=== PATIENT | female | born 1955 | race Caucasian/White ===

== ENCOUNTER 2017-02-27 11:28 | Outpatient (CLI) | payer OTHER ==
[~2017-02-27] VITALS: Ht 163.8 cm; Wt 73.2 kg
--- NOTE | ~2017-02-27 | HEMODYNAMI ---
PATIENT:TONYA LYON MEDICAL RECORD: [id number] : 55 LOCATION:[facility] ADMISSION DATE: 02/27/17 Generatedon:02/27/201714:04 Patient name: TONYA LYON Patient #: [id number] : 1955 Date of study: 02/27/2017 Page: Of Hemodynamic Procedure Report Patient Data Patient Demographics Procedure consent was obtained First Name: TONYA Gender: Female Last Name: CAMRON : 1955 Patient #: [id number] Age: 61 year(s) Race: SSN: [id number] Additional ID: [id number] Contact details Address: [address] [place] [address] [place] [facility] Zip code: [address] Admission Admission Data Admission Date: 02/27/2017 Admission Time: 11:28 Arrival Date: 02/27/2017 Arrival Time: 13:30 Admit Source: Other Insurance Payor: Private health insurance Height (in.): 64 BSA: 1.81 (m2) Height (cm.): 162.56 BMI: 28.49 (kg/m2) Weight (lbs.): 166 Weight (kg.): 75.3 Lab Results Lab Result Date: 02/27/2017 Lab Result Time: 0:00 Biochemistry Name Units Result Min Max BUN mg/dl 11 --(-*--)-- 7 18 Creatinine mg/dl 0.7 --(*---)-- 0.6 1.3 CBC Name Units Result Min Max Hemoglobin g/dl 14.9 --(-*--)-- 13.5 17.5 Procedure Procedure Types Cath Procedure Diagnostic Procedure [facility] w/Coronaries PCI Procedure Coronary Stent Initial Miscellaneous Procedures Moderate Sedation up to 45 minutes Procedure Description Procedure Date Procedure Date: 02/27/2017 Procedure Start Time: 13:40 Procedure End Time: 14:00 Procedure Staff Name Function Sanket Santana MD Performing Physician Allison Scott RT Scrub Krystal Hahn RN Nurse Shasta Campos RT Monitor Procedure Data Cath Procedure Fluoroscopy Diagnostic fluoroscopy Total fluoroscopy Time: 4 time: 4 min min Diagnostic fluoroscopy Total fluoroscopy dose: 455 dose: 455 mGy mGy Contrast Material Contrast Material Type Amount (ml) Isovue 370 78 Entry Location Entry Primary Successful Side Size Upsize Upsize Entry Closure Lentz ccessful Closure Location (Fr) 1 (Fr) 2 (Fr) Remarks Device Remarks Radial Right 6 Fr 6 Fr Mechanical artery Short Short Compression Estimated blood loss: 5 ml Diagnostic catheters Device Type Used For End Catheter Placement Terumo Optitorque 5Fr Multi-vessel Panna Maria 4.5 catheter Angiography Procedure Complications No complications Procedure Medications Medication Administration Route Dosage Oxygen NC 2 l/min Lidocaine 2% added to field 20 Heparin Flush Bag added to field 2 bags (1000units/500ml NS) 0.9% NaCl I.V. 100 ml/hr Versed I.V. 1 mg Fentanyl I.V. 50 mcg Versed I.V. 1 mg Fentanyl I.V. 50 mcg Radial Cocktail I.A. 1 syringe (Verapomil 2mg/Nitro 400mcg/Heparin 1500units) Heparin Bolus I.V. 7500 units Versed I.V. 0.5 mg Fentanyl I.V. 25 mcg Brilinta P.O. 180 mg Hemodynamics Rest BSA: 1.81 (m2) HGB: 14.9 (g/dl) O2 Consumption: Estimated: 170.13 (ml/min) O2 Co nsumption indexed: Estimated:93.99 (ml/min/m) Heart Rate: 69 (bpm) Pressure Samples Time Site Value (mmHg) Purpose Heart Use Rate(bpm) 13:44 LV 109/19,23 Snapshot 56 Gradients Valve Time Site Site Mean SEP/DFP Peak To Heart Use 1 2 (mmHg) (sec/min) Peak Rate (mmHg) (bpm) Aortic 13:44 LV AO 78 Snapshots Pre Cath Intra NCS Post Cath Vital Signs Time Heart Resp SPO2 etCO2 SA2pjon NIBP (mmHg) Rhythm Pain Sedation Rate (ipm) (%) (mmHg) (mmHg) Status Level (bpm) 13:19:26 68 17 99 0 0 136/80(110) NSR 0 (11) 10(A) , No pain 13:23:40 75 18 97 0 0 117/69(92) NSR 0 (11) 10(A) , No pain 13:27:52 70 17 94 0 0 119/69(89) NSR 0 (11) 10(A) , No pain 13:32:02 73 17 94 0 0 117/68(90) NSR 0 (11) 10(A) , No pain 13:36:09 71 15 95 0 0 98/68(82) NSR 0 (11) 9(A) , No pain 13:40:17 71 15 94 0 0 100/61(83) NSR 0 (11) 9(A) , No pain 13:44:33 95 17 98 0 0 82/38(75) NSR 0 (11) 9(A) , No pain 13:48:37 73 17 94 0 0 92/55(73) NSR 0 (11) 9(A) , No pain 13:52:41 74 17 95 0 0 96/67(87) NSR 0 (11) 9(A) , No pain 13:56:49 80 18 96 0 0 97/62(89) NSR 0 (11) 10(A) , No pain 14:00:50 79 9 95 0 0 113/76(95) NSR 0 (11) 10(A) , No pain Medications Time Medication Route Dose Verified Delivered Reason Note s Effectiveness by by 13:19:42 Oxygen NC 2 l/min Sanket Buffie used for Erasto Hahn RN procedure 13:19:50 Lidocaine 2% added 20ml Sanket Sanket for local to vial Erasto Santana MD anesthetic field 13:19:56 Heparin Flush added 2 bags Sanket Sanket used for Bag to Erasto Santana MD procedure (1000units/500ml field NS) 13:20:05 0.9% NaCl I.V. 100 Sanket Buffie Per physician ml/hr Erasto Hahn RN 13:27:12 Versed I.V. 1 mg Sanket Buffie for sedation Erasto Hahn RN 13:27:18 Fentanyl I.V. 50 mcg Sanket Buffie for sedation Erasto Hahn RN 13:34:20 Versed I.V. 1 mg Sanket Sanket for sedation Erasto Santana MD 13:34:24 Fentanyl I.V. 50 mcg Sanket Sanket for sedation Erasto Santana MD 13:43:32 Radial Cocktail I.A. 1 Sanket Sanket for (Verapomil syringe Erasto Santana MD vasodilation 2mg/Nitro 400mcg/Heparin 1500units) 13:44:27 Versed I.V. 0.5 mg Sanket Buffie for sedation Erasto Hahn RN 13:44:32 Fentanyl I.V. 25 mcg Sanket Buffie for sedation Erasto Hahn RN 13:51:09 Heparin Bolus I.V. 7,500 Sanket Buffie for veri fied units Erasto Hahn RN anticoagulation with dr santana 13:59:43 Brilinta P.O. 180 mg Sanket Buffie for Erasto Hahn RN antiplatelet therapy Procedure Log Time Note 12:43:35 Diagnostic Cath status Elective 12:43:36 Time tracking: Regular hours 12:43:41 Plan of Care:Hemodynamics will remain stable., Cardiac rhythm will remain stable., Comfort level will be maintained., Respiratory function will remain adequate., Patient/ family verbilizes understanding of procedure., Procedure tolerated without complication., Recovers from procedure without complications.. 12:45:41 Allison Scott RT(R) sent for patient. Start room use. 13:03:21 Informed consent obtained and on chart 13:04:01 Admit Source: Other 13:04:08 Arrival Date: 02/27/2017 1:30:00 PM 13:04:15 Insurance Payor : Private health insurance 13:04:27 Patient Height : 64 cm 13:04:46 Patient Weight : 166 kg 13:08:48 Lab Result : Hemoglobin 14.9 g/dl 13:08:48 Lab Result : BUN 11 mg/dl 13:08:48 Lab Result : Creatinine 0.7 mg/dl 13:10:34 Patient received from Pre/Post Procedure Room to CCL 1 Alert and oriented. Tansferred to table in Supine position. 13:10:36 Correct patient and procedure confirmed by team. 13:10:38 ECG and BP/O2 sat monitors applied to patient. 13:13:11 Warm blankets applied, and charlotte hugger turned on for patient comfort. 13:18:21 Baseline sample Acquired. 13:18:21 Vital chart was started 13:18:24 Rhythm: sinus rhythm 13:18:27 Full Disclosure recording started 13:18:46 H&P Date Dictated: 02/09/2017 Within 30 days and on chart., H&P Addendum completed by physician on day of procedure. (MUST COMPLETE FOR ALL OUTPATIENTS). 13:18:47 Pre-procedure instructions explained to patient. 13:18:48 Pre-op teaching completed and patient verbalized understanding. 13:18:50 Family in waiting room. 13:18:51 Patient NPO since Midnight. 13:18:57 Is the patient allergic to Iodine/contrast media? No. 13:18:59 Was the patient premedicated? No 13:19:01 Is patient on blood thinner?No 13:19:03 Patient diabetic? No. 13:19:06 Previous problem with sedation/anesthesia? No ? 13:19:08 Snore? Yes 13:19:09 Sleep apnea? No 13:19:10 Deviated septum? No 13:19:11 Opens mouth fully? Yes 13:19:11 Sticks out tongue? Yes 13:19:13 Airway obstruction? No ? 13:19:17 Dentures? No ? 13:19:21 Pre procedure: right dorsailis pedis pulse 1+ Palpable, but thready & weak; easily obliterated 13:19:23 Patient pain scale 0/10 ?. 13:19:29 IV patent on arrival in left forearm with 0.9% NaCl at [facility]. 13:19:34 Lab results completed and on chart. 13:19:38 Right Radial & Right Groin area was prepped with chlora-prep and draped in sterile fashion 13:19:39 Alarms reviewed by R. N. 13:19:39 Sharps counted by scrub and verified by R.N. 13:19:40 Physician arrived 13:19:41 --------ALL STOP TIME OUT------ 13:19:41 Final Timeout: patient, procedure, and site verified with staff and physician. All members of the team are in agreement. 13:19:42 Oxygen 2 l/min NC was administered by Krystal Hahn RN; used for procedure; 13:19:43 Right Radial & Right Groin site verified by team. 13:19:46 Physical assessment completed. ASA score P 2 - A patient with mild systemic disease as per Sanket Santana MD. 13:19:50 Lidocaine 2% 20ml vial added to field was administered by Sanket Santana MD; for local anesthetic; 13:19:50 Sedation plan: IV Moderate Sedation Versed, Fentanyl 13:19:55 Use device set Radial Dx 13:19:56 Heparin Flush Bag (1000units/500ml NS) 2 bags added to field was administered by Sanket Santana MD; used for procedure; 13:19:57 Acist Syringe opened to sterile field. 13:19:57 Medline Cath Pack opened to sterile field. 13:19:58 Bag Decanter opened to sterile field. 13:19:58 Terumo 6Fr Slender Glidesheath opened to sterile field. 13:19:58 St Rito 260cm J .035 wire opened to sterile field. 13:19:59 Acist Hand Control opened to sterile field. 13:19:59 Acist Manifold opened to sterile field. 13:20:00 Tegaderm 4 x 4 opened to sterile field. 13:20:02 MBrace Wrist Support opened to sterile field. 13:20:05 0.9% NaCl 100 ml/hr I.V. was administered by Krystal Hahn RN; Per physician; 13:27:12 Versed 1 mg I.V. was administered by Krystal Hahn RN; for sedation; 13:27:18 Fentanyl 50 mcg I.V. was administered by Krystal Hahn RN; for sedation; 13:30:23 Zero performed for pressure channel P1 13:34:20 Versed 1 mg I.V. was administered by Sanket Santana MD; for sedation; 13:34:24 Fentanyl 50 mcg I.V. was administered by Sanket Santana MD; for sedation; 13:40:36 Procedure started. 13:40:58 Local anesthetic to right radial artery with Lidocaine 2% by Sanket Santana MD.INITIAL ACCESS ONLY 13:41:08 A 6 Fr Short sheath was inserted into the Right Radial artery 13:43:00 A Duable Chinese Optitorque 5Fr Panna Maria 4.5 catheter was advanced over the wire and used for Multi-vessel Angiography. 13:43:32 Radial Cocktail (Verapomil 2mg/Nitro 400mcg/Heparin 1500units) 1 syringe I.A. was administered by Sanket Santana MD; for vasodilation; 13:44:23 LV hemodynamics recorded. 13:44:24 LV gram done using HARMAN 13:44:27 Versed 0.5 mg I.V. was administered by Krystal Hahn RN; for sedation; :44:27 Injector settings: Ml/sec: 5, Volume: 15, 13:44:32 Fentanyl 25 mcg I.V. was administered by Krystal Hahn RN; for sedation; 13:44:39 EF : 60 % 13:45:11 LCA angiography performed. 13:45:14 Injector settings: Ml/sec: 3, Volume: 6, 13:47:09 RCA angiography performed. 13:47:12 Injector settings: Ml/sec: 3, Volume: 6+, 13:47:32 Catheter removed. 13:47:51 Soricimed BMW [place] 2 J-tip 300cm 0.014 guide wir opened to sterile field. 13:47:52 Enfold[employer] Inc.ixCompak Inflation Kit opened to sterile field. 13:47:53 Cordis 6FR XBLAD 3.5 guide catheter opened to sterile field. 13:48:01 Sheath upsized to a 6 Fr Short. 13:48:15 6 Fr xblad 3.5 guide catheter was inserted over the wire 13:48:20 bmw wire advanced. 13:48:28 High Pressure Extension Tubing (Erasto) opened to sterile field. 13:51:09 Heparin Bolus 7,500 units I.V. was administered by Krystal Hahn RN; for anticoagulation; verified with dr santana 13:52:58 Wire advanced across lesion. 13:55:25 Inflation Number: 1 A Medtronic Integrity 2.75 X 14 stent was prepped and advanced across the Mid CX. The stent was deployed at 10 CLAYTON for 0:10 (min:sec). 13:56:20 Stent catheter was removed intact over wire. 13:56:21 Wire removed. 13:56:22 Guide catheter removed. 13:56:46 Terumo TR Band Standard opened to sterile field. 13:57:05 Sheath removed intact; hemostasis achieved with Mechanical Compression to the Right Radial artery. 13:57:08 Procedure ended.(Physican Out) 13:58:07 Fluoroscopy time 04.00 minutes. 13:58:33 Fluoroscopy dose: 455 mGy 13:58:33 Flurop Dose total: 455 13:58:55 Contrast amount:Isovue 370 78ml. 13:59:21 Sharps counted by scrub and verified by R.N. 13:59:26 TR band inflated with 10cc of air. 13:59:28 Insertion/operative site no bleeding no hematoma. 13:59:43 Brilinta 180 mg P.O. was administered by Krystal Hahn RN; for antiplatelet therapy; 13:59:52 Post right radial artery:stable 13:59:54 Post Procedure Pulses reassessed and unchanged 13:59:57 Post procedure rhythm: unchanged. 14:00:00 Estimated blood loss: 5 ml 14:00:03 Post procedure instruction explained to patient.Patient verbalizes understanding. 14:00:04 Patient needs reinforcement of post procedure teaching. 14:00:28 Procedure type changed to Cath procedure, Diagnostic procedure, LHC, LHC w/Coronaries, PCI procedure, Coronary Stent Initial, Miscellaneous Procedures, Moderate Sedation up to 45 minutes 14:00:31 Procedure and supply charges have been captured, reviewed, submitted and are correct. 14:00:36 Procedure Complication : No complications 14:00:39 Vital chart was stopped 14:00:39 See physician's report for complete and final results. 14:00:42 Report given to Pre/Post Procedure Room. 14:00:45 Patient transfered to Pre/Post Procedure Room with Stretcher. 14:00:47 Procedure ended. 14:00:47 Full Disclosure recording stopped 14:01:02 ACC-PCI Only Patient was given prescriptions, or instructed by Sanket Santana MD to start/continue the following medications upon discharge: Brilinta 14:01:05 End room use (Document Last) Intervention Summary Intervention Notes Time ActionType Lesion and Equipment Action# Pressure Duration Attributes Used 13:55:25 Place stent Mid CX Medtronic 1 10 00:10 Integrity 2.75 X 14 stent Device Usage Item Name Manufacture Quantity Catalog Hospital Part Current Minimal Lot# / Number Charge Number Stock Stock Serial# Code Acist Acist 1 40880 720268 024460 502427 20 Syringe Medical Systems Inc Medline Cardinal 1 [id number] 203484 72711 588149 5 Cath Pack Health Bag Microtek 1 216419 83773 322909 5 FNZ Medical Inc. Terumo 6Fr Terumo 1 [id number] 784348 084608 463912 [address] Rito 1 [id number] 216520 822802 526232 30 260cm J .035 wire Acist Hand Acist 1 05463 020054 383291 718028 5 Control Medical Systems Inc Acist Acist 1 73831 282762 284175 064989 5 Manifold Medical Systems Inc Tegaderm 4 3M 1 1626W 028518 155743 775967 5 x 4 MBrace Advanced 1 140-0250-00 354201 17928 544136 5 Wrist Vascular Support Dynamics Terumo Terumo 1 40-7072 544753 069569 857973 5 Optitorque 5Fr Panna Maria 4.5 catheter Bautista BMW Bautista 1 [id number] 810414 284283 087013 5 [place] 2 Vascular J-tip 300cm 0.014 guide wir Merit Merit 1 [id number] 210330 471583 930220 15 Health [employer] Medical Inflation Kit Cordis 6FR Cardinal 1 [id number] 073060 626983 058509 10 XBLAD 3.5 Health guide catheter High Merit 1 [id number] 561149 59603 925357 10 Pressure Medical Extension Tubing (Santana) Medtronic Medtronic 1 [id number] 335922 030846 042343 5 [id number] Integrity 2.75 X 14 stent Terumo TR Terumo 1 [id number] 003647 604448 249670 40 Band Standard Signature Audit [place] Stage Time Signature Unsigned Intra-Procedure 02/27/2017 Shasta Campos 2:04:45 PM RT(R) Signatures Monitor : Shasta Campos RT Signature : Date : Time : [facility] [address] [facility] [place] [address]
--- NOTE | ~2017-02-27 | OP ---
PATIENT NAME: TONYA LYON MEDICAL RECORD: [id number] :55 LOCATION:D.[facility] ADMISSION DATE: SURGEON: KASSIDY BOOTH M.D. DATE OF OPERATION: 02/27/2017 REFERRING PHYSICIAN: Camille Oshea in [place], [place]. PROCEDURES PERFORMED: 1. Selective coronary angiography. 2. Left heart catheterization with ventriculogram. 3. PTCA and stent placed to the circumflex. INDICATION: A 61-year-old woman presents with symptoms of accelerating angina and abnormal HeartSaver CT. EQUIPMENT USED: A 5-Dutch Marmora catheter. INTERVENTION: A 6-Dutch XB LAD guide, BMW guide wire, 2.75 x 14 mm Integrity stent. TECHNIQUE: A 6-Dutch sheath was inserted in retrograde fashion in the right radial artery. Next, selective coronary angiography was performed using standard 5-Dutch Marmora catheter. Left heart catheterization was performed using Marmora catheter as well. CORONARY ANATOMY: 1. Left main: Left main trunk is moderate in caliber. It gives rise to the LAD and circumflex. There is no obstruction. 2. LAD: This is a large caliber vessel extending to the apex. Beyond the first diagonal branch, there is an 80% stenosis seen. 3. Circumflex: This vessel is moderate in caliber. The first lateral branch has a discrete 90% stenosis in the proximal segment. 4. Right coronary: This vessel is moderate in caliber and dominant. The mid vessel has a smooth 40% stenosis. 5. Left ventricle: The left ventricle is normal in size and function. No wall motion abnormalities are noted. Estimated ejection fraction is 60%. DESCRIPTION OF INTERVENTION: A 100 units per kilogram of heparin was infused. A 6-Dutch XB LAD guide was advanced and engaged in the left main coronary artery. Next, a BMW guide wire was placed in the first lateral branch of the circumflex. A 2.75 x 14 mm Integrity stent was placed across the stenosis and deployed at 10 atmospheres. Injection reveals stent to be widely patent with 0% residual stenosis. There is marked improvement in distal flow. At this point, the wire and guide were removed. IMPRESSION: Successful percutaneous transluminal coronary angioplasty and stent of the circumflex with 0% residual stenosis. PLAN: I will stage the LAD lesion and bring her back in 1 week for PTCA of the LAD. TRANSINT:[id number] Voice Confirmation ID: [id number] DOCUMENT ID: [id number] OPERATIVE REPORT [id number] TONYA LYON TIMOTHY E M.D. CC: [id number] DICTATION DATE: 02/27/17 140 CREPE MAKER: 02/27/171921 DEP CLI 02/27/17 [place] [id number] [place] [id number]
[2017-02-27] MEDS ORDERED: INDERAL 40 MG T40 MG PO (11:47)
[2017-02-27] MEDS ORDERED: BAYER CHEWABLE81 MG PO (11:48)
[2017-02-27 11:50] VITALS: BP 150/84; Ht 163.8 cm; Wt 73.2 kg
[2017-02-27 12:05] LABS: HEMATOCRIT 41.1 % (36.0-48.0); HEMOGLOBIN 14.9 g/dL (12-16); LYMPHOCYTES 43.1 % (15-50); MCHC 36.3 g/dL (31.0-37.0); MCV 85.6 fL (80.0-100.0); MEAN PLATELET VOLUME 9.6 fL (7.4-10.4); NEUTROPHILS 48.5 % (40-80); PLATELET COUNT 224 10x3/uL (130-400); WBC 7.7 10x3/uL (4.8-10.8)
[2017-02-27 12:19] LABS: CALC OSMOLALITY 275 mosm/kg (275-300); CALCIUM 9.1 mg/dL (8.5-10.1); CARBON DIOXIDE 23.8 mmol/L (21.0-32.0); CHLORIDE - SERUM 104 mmol/L (98-107); CREATININE - SERUM 0.7 mg/dL (0.6-1.3); GLUCOSE 113 mg/dL (74-106); POTASSIUM - SERUM 4.7 mmol/L (3.5-5.1); SODIUM 138 mmol/L (136-145); UREA NITROGEN 11 mg/dL (7-18); eGFR NON AFRICAN AMERICAN 90 mL/min (90-120)
--- NOTE | 2017-02-27 14:15 | NUR ---
1415 VSS WITH CHEST PAIN DENIED TR BAND TO R/WRIST CDI NO BLEEDING NO HEMATOMA NOTED
[2017-02-27] MEDS ORDERED: BRILINTA90 MG PO (14:16)
--- NOTE | 2017-02-27 14:45 | NUR ---
TR R/WRIST CDI NO BLEEDING NO HEMATOMA NOTED. VSS WITH CHEST PAIN DENIED 1515 VOICED NO CHEST PAIN AT THIS TIME VSS WITH FAMILY AT SIDE
--- NOTE | 2017-02-27 15:15 | NUR ---
VSS REMAIN STABLE WITH CHEST PAIN DENIED TR BAND TO R/WRIST CDI SANDWICH AND SODA TO BEDSIDE WITH FAMILY ASSISTING
--- NOTE | 2017-02-27 15:35 | NUR ---
RESTING QUIETLY WITH VSS NO DISTRESS NOTED WILL MONITOR
--- NOTE | 2017-02-27 16:35 | NUR ---
SITTING WITH HOB UP 45 DEGREES WATCHING TV. CHEST PAIN DENIED WITH VSS TR BAND TO R/WRIST CDI NO BLEEDING NO HEMATOMA NOTED
--- NOTE | 2017-02-27 17:16 | NUR ---
3 CC AIR REMOVED FROM TR BAND WITH NO BLEEDING NO HEMATOMA NOTED. VSS
--- NOTE | 2017-02-27 18:32 | NUR ---
1750-ALL AIR OUT OF TR BAND, BAND AID APPLIED AND BRACE. INSTRUCTED ON IMPORTANCE OF FOLLOWING INSTRUCTIONS IN HANDOUT- VERBAL UNDERSTANDING NOTED. AT SIDE
--- NOTE | 2017-02-27 18:39 | NUR ---
1815-IV D'C WITH CATH TIP INTACT, WRITTEN AND VERBAL INSTRUCTIONS GIVEN TO PT AND , DENIES FURTHUR NEEDS. REMINDED TO RETURN NEXT WEEK FOR ANOTHER PROCEDURE-OFFICE WILL CALL
== END 2017-02-27 18:25 | disposition home or self-care (01) ==
LOC: D.CATH 11:28
PROVIDERS: Internal Medicine Cardiovascular Disease
DX: I25.10 Atherosclerotic heart disease of native coronary artery without angina pectoris (principal); I47.1 Supraventricular tachycardia; Z87.891 Personal history of nicotine dependence

== ENCOUNTER 2017-03-13 10:56 | Outpatient (CLI) | payer OTHER ==
[~2017-03-13] VITALS: Ht 163.8 cm; Wt 73.2 kg
--- NOTE | ~2017-03-13 | HEMODYNAMI ---
PATIENT:TONYA LYON MEDICAL RECORD: [id number] : 55 [id number] ADMISSION DATE: 03/13/17 Generatedon:03/13/201714:22 Patient name: TONYA LYON Patient #: [id number] : 1955 Date of study: 03/13/2017 Page: Of Hemodynamic Procedure Report Patient Data Patient Demographics Procedure consent was obtained First Name: TONYA Gender: Female Last Name: CAMRON : 1955 Patient #: [id number] Age: 61 year(s) Race: SSN: [id number] Additional ID: [id number] Contact details Address: [address] [place] [address] [place] Zip code: [address] Past Medical History Allergies: No known allergies Admission Admission Data Admission Date: 03/13/2017 Admission Time: 10:56 Arrival Date: 03/13/2017 Arrival Time: 0:00 Admit Source: Other Height (in.): 66 BSA: 1.85 (m2) Height (cm.): 167.64 BMI: 26.79 (kg/m2) Weight (lbs.): 166 Weight (kg.): 75.3 Procedure Procedure Types Cath Procedure PCI Procedure Coronary Stent Initial Miscellaneous Procedures Moderate Sedation up to 15 minutes Procedure Description Procedure Date Procedure Date: 03/13/2017 Procedure Start Time: 14:01 Procedure End Time: 14:17 Procedure Staff Name Function Sanket Santana MD Performing Physician Shasta Campos RT Scrub Krystal Hahn RN Nurse Allison Scott RT Monitor Procedure Data Cath Procedure Fluoroscopy Diagnostic fluoroscopy Total fluoroscopy Time: 2.8 time: 2.8 min min Diagnostic fluoroscopy Total fluoroscopy dose: 334 dose: 334 mGy mGy Contrast Material Contrast Material Type Amount (ml) Isovue 300 63 Entry Location Entry Primary Successful Side Size Upsize Upsize Entry Closure Succes sful Closure Location (Fr) 1 (Fr) 2 (Fr) Remarks Device Remarks Femoral Right 6 Fr Exoseal artery Short Estimated blood loss: 10 ml Procedure Complications No complications Procedure Medications Medication Administration Route Dosage Oxygen NC 2 l/min Lidocaine 2% added to field 20 Heparin Flush Bag added to field 2 bags (1000units/500ml NS) 0.9% NaCl I.V. 100 ml/hr Versed I.V. 1 mg Fentanyl I.V. 50 mcg Versed I.V. 1 mg Fentanyl I.V. 50 mcg Versed I.V. 1 mg Fentanyl I.V. 50 mcg Heparin Bolus I.V. 7500 units Nitroglycerin IC/IA I.C. 100 mcg Hemodynamics Rest BSA: 1.85 (m2) O2 Consumption: Estimated: 174.44 (ml/min) O2 Consumption indexed : Estimated:94.29 (ml/min/m) Heart Rate: 69 (bpm) Snapshots Pre Cath Intra NCS Post Cath Vital Signs Time Heart Resp SPO2 etCO2 [id number] NIBP (mmHg) Rhythm Pain Sedation Rate (ipm) (%) (mmHg) (mmHg) Status Level (bpm) 13:46:53 72 16 100 0 0 146/82(128) NSR 0 (11) 10(A) , No pain 13:51:09 69 14 100 0 0 143/84(116) NSR 0 (11) 10(A) , No pain 13:55:17 73 19 96 0 0 105/72(89) NSR 0 (11) 10(A) , No pain 13:59:23 74 17 96 0 0 110/65(82) NSR 0 (11) 9(A) , No pain 14:03:28 73 15 96 0 0 101/72(82) NSR 0 (11) 9(A) , No pain 14:07:36 72 15 96 0 0 102/58(80) NSR 0 (11) 9(A) , No pain 14:11:40 76 16 97 0 0 111/70(77) NSR 0 (11) 9(A) , No pain 14:15:44 73 16 96 0 0 99/62(89) NSR 0 (11) 9(A) , No pain 14:21:18 80 17 96 0 0 106/76(88) NSR 0 (11) 10(A) , No pain Medications Time Medication Route Dose Verified Delivered Reason Notes Effectiveness by by 13:51:06 Oxygen NC 2 Sanket Buffie used for l/min Erasto Hahn RN procedure 13:51:14 Lidocaine 2% added 20ml Sanket Sanket for local to vial Erasto Santana MD anesthetic field 13:51:20 Heparin Flush added 2 Sanket Sanket used for Bag to bags Erasto Santana MD procedure (1000units/500ml field NS) 13:51:29 0.9% NaCl I.V. 100 Sanket Buffie Per physician ml/hr Erasto Hahn RN 13:57:10 Versed I.V. 1 mg Sanket Buffie for sedation Erasto Hahn RN 13:57:15 Fentanyl I.V. 50 Sanket Buffie for sedation mcg Erasto Hahn RN 14:01:37 Versed I.V. 1 mg Sanket Buffie for sedation Erasto Hahn RN 14:01:41 Fentanyl I.V. 50 Sanket Buffie for sedation mcg Erasto Hahn RN 14:05:24 Versed I.V. 1 mg Sanket Buffie for sedation Erasto Hahn RN 14:05:27 Fentanyl I.V. 50 Sanket Buffie for sedation mcg Erasto Hahn RN 14:07:07 Heparin Bolus I.V. 7,500 Sanket Buffie for verifi ed units Erasto Hahn RN anticoagulation with dr santana 14:12:33 Nitroglycerin I.C. 100 Sanket Sanket for IC/IA mcg Erasto Santana MD anticoagulation Procedure Log Time Note 13:36:02 Admit Source: Other 13:36:04 Arrival Date: 03/13/2017 12:00:00 AM 13:36:20 Patient Height : 66 cm 13:36:25 Patient Weight : 166 kg 13:36:39 Diagnostic Cath Status : Elective 13:37:04 Krystal Hahn RN sent for patient. Start room use. 13:37:19 Time tracking: Regular hours 13:37:24 Plan of Care:Hemodynamics will remain stable., Cardiac rhythm will remain stable., Comfort level will be maintained., Respiratory function will remain adequate., Patient/ family verbilizes understanding of procedure., Procedure tolerated without complication., Recovers from procedure without complications.. 13:40:38 Patient received from Pre/Post Procedure Room to [facility] 1 Alert and oriented. Tansferred to table in Supine position. 13:40:53 Warm blankets applied, and charlotte hugger turned on for patient comfort. 13:40:54 Correct patient and procedure confirmed by team. 13:40:58 Signed procedure consent form obtained from patient. 13:41:19 H&P Date Dictated: 02/27/2017 Within 30 days and on chart., H&P Addendum completed by physician on day of procedure. (MUST COMPLETE FOR ALL OUTPATIENTS). 13:41:22 Pre-procedure instructions explained to patient. 13:41:24 Pre-op teaching completed and patient verbalized understanding. 13:41:27 Family in waiting room. 13:41:29 Patient NPO since Midnight. 13:41:35 Patient allergic to No known allergies 13:41:39 Is the patient allergic to Iodine/contrast media? No. 13:41:42 Is patient on blood thinner?Yes 13:41:54 ACC The patient was administered the following blood thiners within the last 24 hours: ACCBrilinta 13:42:12 IV patent on arrival in left hand with 0.9% NaCl at O. 13:42:24 Lab results completed and on chart. 13:42:37 Patient diabetic? No. 13:42:39 Snore? Yes 13:42:40 Sleep apnea? No 13:43:04 Right groin area was prepped with chlora-prep and draped in sterile fashion 13:43:06 Alarms reviewed by R. N. 13:43:06 Sharps counted by scrub and verified by R.N. 13:43:15 Physician paged 13:43:16 Physician arrived 13:44:17 ECG and BP/O2 sat monitors applied to patient. 13:45:48 Baseline sample Acquired. 13:45:48 Vital chart was started 13:45:55 Rhythm: sinus rhythm 13:45:58 Full Disclosure recording started 13:51:06 Oxygen 2 l/min NC was administered by Krystal Hahn RN; used for procedure; 13:51:14 Lidocaine 2% 20ml vial added to field was administered by Sanket Santana MD; for local anesthetic; 13:51:20 Heparin Flush Bag (1000units/500ml NS) 2 bags added to field was administered by Sanket Santana MD; used for procedure; 13:51:29 0.9% NaCl 100 ml/hr I.V. was administered by Krystal Hahn RN; Per physician; 13:55:47 --------ALL STOP TIME OUT------ 13:55:48 Final Timeout: patient, procedure, and site verified with staff and physician. All members of the team are in agreement. 13:55:51 Right groin site verified by team. 13:55:56 Physical assessment completed. ASA score P 2 - A patient with mild systemic disease as per Sanket Santana MD. 13:56:00 Sedation plan: IV Moderate Sedation Versed, Fentanyl 13:56:33 Use device set Femoral PCI 13:56:35 Acist Syringe opened to sterile field. 13:56:36 Acist Hand Control opened to sterile field. 13:56:36 Bag Decanter opened to sterile field. 13:56:37 Medline Cath Pack opened to sterile field. 13:56:38 Terumo 6Fr Amoret Sheath opened to sterile field. 13:56:39 St Rito 260cm J .035 wire opened to sterile field. 13:56:40 Merit BasixCompak Inflation Kit opened to sterile field. 13:56:40 Acist Manifold opened to sterile field. 13:56:41 Tegaderm 4 x 4 opened to sterile field. 13:57:10 Versed 1 mg I.V. was administered by Krystal Hahn RN; for sedation; 13:57:15 Fentanyl 50 mcg I.V. was administered by Krystal Hahn RN; for sedation; 13:59:37 Cordis 6FR XBLAD 3.5 guide catheter opened to sterile field. 13:59:37 Bautista BMW [place] 2 J-tip 300cm 0.014 guide wir opened to sterile field. 13:59:51 PCI Cath status Elective 14:00:25 Procedure started. 14:01:37 Versed 1 mg I.V. was administered by Krystal Hahn RN; for sedation; 14:01:41 Fentanyl 50 mcg I.V. was administered by Krystal Hahn RN; for sedation; 14:01:49 Local anesthetic to right femoral artery with Lidocaine 2% by Sanket Santana MD.INITIAL ACCESS ONLY 14:02:02 A 6 Fr Short sheath was inserted into the Right Femoral artery 14:02:22 6 Fr XBLAD 3.5 guide catheter was inserted over the wire 14:05:07 High Pressure Extension Tubing (Erasto) opened to sterile field. 14:05:24 Versed 1 mg I.V. was administered by Krystal Hahn RN; for sedation; 14:05:27 Fentanyl 50 mcg I.V. was administered by Krystal Hahn RN; for sedation; 14:05:36 BMW wire advanced. 14:05:47 Wire advanced across lesion. 14:07:07 Heparin Bolus 7,500 units I.V. was administered by Krystal Hahn RN; for anticoagulation; verified with dr santana 14:12:11 Inflation Number: 1 A eucl3Dtronic Integrity 2.75 X 26 stent was prepped and advanced across the Mid LAD. The stent was deployed at 13 [place] for 0:26 (min:sec). 14:12:33 Nitroglycerin IC/IA 100 mcg I.C. was administered by Sanket Santana MD; for anticoagulation; 14:13:38 Stent catheter was removed intact over wire. 14:14:42 Wire removed. 14:14:53 Cordis 6Fr Exoseal opened to sterile field. 14:14:54 Guide catheter removed. 14:15:23 Sheath removed intact; hemostasis achieved with Exoseal to the Right Femoral artery. 14:15:33 Procedure ended.(Physican Out) 14:15:40 Fluoroscopy time 02.80 minutes. 14:15:49 Flurop Dose total: 334 14:15:49 Fluoroscopy dose: 334 mGy 14:15:54 Contrast amount:Isovue 300 63ml. 14:15:57 Sharps counted by scrub and verified by R.N. 14:16:00 Insertion/operative site no bleeding no hematoma. 14:16:05 Post-op/insertion site Right Femoral artery dressed using a 4 x 4 and Tegaderm. 14:16:16 Post procedure rhythm: unchanged. 14:16:22 Estimated blood loss: 10 ml 14:16:27 Post procedure instruction explained to patient.Patient verbalizes understanding. 14:16:39 Procedure and supply charges have been captured, reviewed, submitted and are correct. 14:17:24 Procedure Complication : No complications 14:17:27 Vital chart was stopped 14:17:28 See physician's report for complete and final results. 14:17:30 Report given to Pre/Post Procedure Room. 14:17:34 Patient transfered to Pre/Post Procedure Room with Stretcher. 14:17:37 Procedure ended. 14:17:37 Full Disclosure recording stopped 14:17:39 End room use (Document Last) Intervention Summary Intervention Notes Time ActionType Lesion and Equipment Action# Pressure Duration Attributes Used 14:12:11 Place stent Mid LAD Medtronic 1 13 00:26 Integrity 2.75 X 26 stent Device Usage Item Name Manufacture Quantity Catalog Hospital Part Current Minimal L ot# / Number Charge Number Stock Stock Serial# Code Acist Acist 1 35134 486603 731386 606035 20 Syringe Medical Systems Inc Acist Hand Acist 1 58478 564900 196115 199311 5 Control Medical Systems Inc Bag Microtek 1 2002S 898833 98489 708332 5 DecBoyaa [employer]. Medline Cardinal 1 [id number] 413467 79601 865192 5 Cath Pack Health Terumo 6Fr Terumo 1 PIF169 528881 141270 083294 [address] [facility] [address] Rito 1 345401 244177 120184 175563 30 260cm J .035 wire Merit Merit 1 EQ9099 979632 266850 809549 15 BasixCompak Medical Inflation Kit Acist Acist 1 35247 666102 934117 854821 5 Stop Being Watched Medical Systems Inc Tegaderm 4 3M 1 1626W 586317 056753 099836 5 x 4 Cordis 6FR Cardinal 1 [id number] 067888 379909 005595 10 XBLAD 3.5 Health guide catheter Bautista BMW Bautista 1 [id number] 345845 548259 579778 5 [place] 2 Vascular J-tip 300cm 0.014 guide wir High Merit 1 [id number] 805826 02099 333524 10 Pressure Medical Extension Tubing (Santana) Medtronic Medtronic 1 [id number] 183577 624825 168382 1 0 [id number] Integrity 2.75 X 26 stent Cordis 6Fr Cardinal 1 EX600 465853 150436 214947 10 Advanced BioHealing Health Signature Audit [place] Stage Time Signature Unsigned Intra-Procedure 03/13/2017 Allison Scott 2:22:39 PM RT(R) Signatures Monitor : Allison Scott Signature : RT Date : Time : [id number] [place] [address]
[~2017-03-13 10:56] MED LIST: BAYER CHEWABLE81 MG PO; BRILINTA90 MG PO; INDERAL 40 MG T40 MG PO
[2017-03-13 11:33] VITALS: BP 145/83; Ht 163.8 cm; Wt 73.2 kg
[2017-03-13 12:13] LABS: BASOPHILS 0.3 % (0-2); EOSINOPHILS 1.5 % (0-7); HEMATOCRIT 39.4 % (36.0-48.0); HEMOGLOBIN 14.1 g/dL (12-16); IMMATURE GRANULOCYTES 0.2 % (0-5); LYMPHOCYTES 40.4 % (15-50); MCH 31.1 pg (26.0-34.0); MCHC 35.8 g/dL (31.0-37.0); MEAN PLATELET VOLUME 9.8 fL (7.4-10.4); MONOCYTES 6.7 % (2-11); NEUTROPHILS 50.9 % (40-80); PLATELET COUNT 216 10x3/uL (130-400); RBC 4.53 10x6/uL (4.00-5.40); RDW 12.6 % (11.5-14.5)
[2017-03-13 12:31] LABS: CALC OSMOLALITY 279 mosm/kg (275-300); CALCIUM 9.5 mg/dL (8.5-10.1); CHLORIDE - SERUM 104 mmol/L (98-107); CREATININE - SERUM 0.8 mg/dL (0.6-1.3); GLUCOSE 118 mg/dL (74-106); POTASSIUM - SERUM 4.4 mmol/L (3.5-5.1); SODIUM 139 mmol/L (136-145); UREA NITROGEN 14 mg/dL (7-18); eGFR NON AFRICAN AMERICAN 77 mL/min (90-120)
--- NOTE | 2017-03-13 14:55 | NUR ---
QUIETLY RESTING. 2L NC, NO RESP DISTRESS NOTED. RIGHT GROIN 6F EXOSEAL CDI, NO BLEEDING OR HEMATOMA NOTED. NO C/O CHEST PAIN OR NAUSEA. VSS. INSTRUCTED PT TO KEEP HEAD FLAT ON PILLOW AND RIGHT LEG STRAIGHT.
--- NOTE | 2017-03-13 15:25 | NUR ---
ROOM AIR, NO RESP DISTRESS. RIGHT GROIN 6F EXOSEAL CDI, NO BLEEDING OR HEMTOMA NOTED. VSS. CALL LIGHT WITHIN REACAH.
--- NOTE | 2017-03-13 15:40 | NUR ---
RIGHT GROIN 6F EXOSEAL CDI, NO BLEEDING OR HEMATOMA NOTED. NO C/O CHEST PAIN OR NAUSEA. SANDWICH TRAY GIVEN. VSS. WILL CONTINUE TO MONITOR.
--- NOTE | 2017-03-13 16:10 | NUR ---
QUIETLY RESTING WITH HEAD FLAT ON PILLOW. VSS. NO C/O AT THIS TIME. RIGHT GROIN 6F EXOSEAL CDI, NO BLEEDING OR HEMATOMA NOTED. CALL LIGHT WITHIN REACH.
--- NOTE | 2017-03-13 16:40 | NUR ---
IN BED WITH HEAD FLAT ON PILLOW. ROOM AIR, NO RESP DISTRESS NOTED. NO C/O CHEST PAIN. RIGHT GROIN 6F EXOSEAL CDI, NO BLEEDING OR HEMATOMA NOTED. VSS. AT BEDSIDE, CALL LIGHT WITHIN REACH.
--- NOTE | 2017-03-13 17:40 | NUR ---
MEDIUM SIZE HEMATOMA TO RIGHT GROIN. PRESSURE HELD AND FEMSTOP PLACED AT SITE. VSS. WILL CONTINUE TO MONITOR.
--- NOTE | 2017-03-13 18:41 | NUR ---
FEMSTOP PRESSURE DECREASED BY 20. NO BLEEDING NOTED.
--- NOTE | 2017-03-13 18:50 | NUR ---
FEMSTOP PRESSURE DECREASED BY 30. NO BLEEDING NOTED
--- NOTE | 2017-03-13 19:02 | NUR ---
FEMSTOP PRESSURE DECREASED BY 20. LEFT HAND PIV D/C'D WITH CATHEDTER INTACT, BAND AID TO SITE.
--- NOTE | 2017-03-13 19:14 | NUR ---
REMAINING PRESSURE REMOVED FROM FEMSTOP. HOB ELEVATED 30 DEGREES.
--- NOTE | 2017-03-13 19:20 | NUR ---
DISCHARGE INSTRUCTIONS GIVEN, VERBALIZED UNDERSTANDING. UP TO BEDSIDE TO GET DRESSED.
--- NOTE | 2017-03-13 19:24 | NUR ---
UP TO RESTROOM TO VOID.
--- NOTE | 2017-03-13 19:27 | NUR ---
TAKEN OUT VIA WHEELCHAIR BY CATH DATA WAREHOUSING MANAGER. LEFT FACILITY WITH AND ALL PERSONAL BELONGINGS.
--- NOTE | 2017-03-14 12:49 | OP ---
PATIENT NAME: TONYA LYON MEDICAL RECORD: [id number] :55 LOCATION:D.CAT ADMISSION DATE: SURGEON: KASSIDY BOOTH M.D. DATE OF OPERATION: 03/13/2017 REFERRING PHYSICIAN: Camille Oshea at [place], [place]. PROCEDURES PERFORMED: PTCA and stent placed in LAD. INDICATION: A 61-year-old who presents with symptoms of accelerating angina. She recently underwent stenting of the circumflex artery. She returns today for completion of staged procedure with stenting to the LAD. EQUIPMENT USED: A 6-[place]izen [place] XB LAD guide, BMW guidewire, 2.75 x 26 mm Integrity stent. DESCRIPTION OF INTERVENTION: A 6-[place] sheath was inserted in retrograde fashion in the right common femoral artery. Next, 100 units per kilogram of heparin was infused. A 6-[place]izen [place] XB LAD guide was advanced and engaged in the left main coronary artery. Injections revealed an 80% stenosis at the level of the first diagonal branch. This followed by 70% stenosis in the proximal mid LAD as well. A BMW guidewire was placed in the distal vessel. A 2.75 x 26 mm Integrity stent was placed across both lesions and deployed at 12 atmospheres. Injection reveals stent to be widely patent with 0% residual stenosis. There is marked improvement in distal flow. At this point, the wire and guide were removed. IMPRESSION: Successful percutaneous transluminal coronary angioplasty and stenting to the LAD with 0% residual stenosis. TRANSINT:[id number] Voice Confirmation ID: [id number] DOCUMENT ID: [id number] KASSIDY BOOTH M.D. at 1249 CC: [id number] DICTATION DATE: 03/13/17 1421 HYDRAULIC JACK OPERATOR: 03/13/17 2137 DEP CLI 03/13/17 [facility] [address] [id number]
== END 2017-03-13 19:27 | disposition home or self-care (01) ==
LOC: D.CATH 10:56
PROVIDERS: Internal Medicine Cardiovascular Disease
DX: I25.10 Atherosclerotic heart disease of native coronary artery without angina pectoris (principal); I47.1 Supraventricular tachycardia; Z87.891 Personal history of nicotine dependence; Z01.812 Encounter for preprocedural laboratory examination

== ENCOUNTER 2017-05-07 11:06 | Observation (INO) | payer OTHER ==
[~2017-05-07] VITALS: Ht 163.8 cm; Wt 72.7 kg
--- NOTE | ~2017-05-07 | HEMODYNAMI ---
PATIENT:TONYA LYON MEDICAL RECORD: [id number] : 55 LOCATION:[facility]# [id number] ADMISSION DATE: 05/07/17 Generatedon:05/07/201716:02 Patient name: TONYA LYON Patient #: [id number] : 1955 Date of study: 05/07/2017 Page: Of Hemodynamic Procedure Report Patient Data Patient Demographics Procedure consent was obtained First Name: TONYA Gender: Female Last Name: CAMRON : 1955 Patient #: [id number] Age: 61 year(s) Race: SSN: [id number] Additional ID: [id number] Contact details Address: [address] [place] [address] [place] [place] [facility] Zip code: [address] Past Medical History Allergies: No known allergies Admission Admission Data Admission Date: 05/07/2017 Admission Time: 11:06 Lab Results Lab Result Date: 05/07/2017 Lab Result Time: 11:31 Biochemistry Name Units Result Min Max BUN mg/dl 15 --(--*-)-- 7 18 Creatinine mg/dl 0.8 --(-*--)-- 0.6 1.3 CBC Name Units Result Min Max Hematocrit % 41.3 -*(----)-- 42 54 Hemoglobin g/dl 14.5 --(*---)-- 13.5 17.5 Procedure Procedure Types Cath Procedure Diagnostic Procedure C [facility] w/Coronaries PCI Procedure Coronary Stent Initial PTCA Additional Miscellaneous Procedures Moderate Sedation up to 45 minutes Procedure Description Procedure Date Procedure Date: 05/07/2017 Procedure Start Time: 15:14 Procedure End Time: 15:59 Procedure Staff Name Function Sanket Santana MD Performing Physician Allison Scott RT Scrub Frieda Hurtado RN Nurse Chemo Carlos RT Monitor Procedure Data Cath Procedure Fluoroscopy Diagnostic fluoroscopy Total fluoroscopy Time: time: 10.8 min 10.8 min Diagnostic fluoroscopy Total fluoroscopy dose: 799 dose: 799 mGy mGy Contrast Material Contrast Material Type Amount (ml) Isovue 300 128 Entry Location Entry Primary Successful Side Size Upsize Upsize Entry Closure Succes sful Closure Location (Fr) 1 (Fr) 2 (Fr) Remarks Device Remarks Femoral Right 5 Fr 6 Fr Exoseal artery Short Diagnostic catheters Device Type Used For End Catheter Placement Cordis 5Fr JL 4.0 Procedure Catheter (MP) Cordis 5Fr 3DRC Catheter Procedure (MP) Cordis 5Fr Pigtail Procedure Catheter (MP) Procedure Complications No complications Procedure Medications Medication Administration Route Dosage Oxygen NC 2 l/min Heparin Flush Bag added to field 2 bags (1000units/500ml NS) Lidocaine 2% added to field 20 Benadryl I.V. 50 mg Versed I.V. 1 mg Fentanyl I.V. 50 mcg Versed I.V. 1 mg Fentanyl I.V. 50 mcg Fentanyl I.V. 50 mcg Heparin Bolus I.V. 7300 units Versed I.V. 1 mg Fentanyl I.V. 25 mcg Versed I.V. 0.5 mg Fentanyl I.V. 25 mcg Versed I.V. 0.5 mg Brilinta P.O. 180 mg Hemodynamics Rest HGB: 14.5 (g/dl) Heart Rate: 50 (bpm) Pressure Samples Time Site Value (mmHg) Purpose Heart Use Rate(bpm) 15:23 LV 131/37,22 Snapshot 73 15:24 AO 134/78(102) Pullback 72 15:24 LV 132/10,23 Pullback 72 Gradients Valve Time Site 1 Site 2 Mean SEP/DFP Peak To Heart Use (mmHg) (sec/min) Peak Rate (mmHg) (bpm) Aortic 15:24 LV AO 0 15 0 72 132/10,23 134/78(102) Calculations Valve P-P Mean Valve Index Valve Source Name Gradient Area Flow (cm2) Aortic 0 0 0 0 Snapshots Pre Cath Intra NCS Post Cath Vital Signs Time Heart Resp SPO2 etCO2 [id number] NIBP (mmHg) Rhythm Pain Sedation Rate (ipm) (%) (mmHg) (mmHg) Status Level (bpm) 15:02:46 40 18 100 0 0 134/88(118) NSR 0 (11) 10(A) , No pain 15:07:01 52 18 100 0 0 142/94(133) NSR 0 (11) 10(A) , No pain 15:11:12 66 18 98 0 0 128/86(120) NSR 0 (11) 10(A) , No pain 15:15:26 71 13 92 0 0 119/68(85) NSR 0 (11) 10(A) , No pain 15:19:38 65 21 94 0 0 130/79(98) NSR 0 (11) 9(A) , No pain 15:23:44 92 16 94 0 0 127/97(114) NSR 0 (11) 9(A) , No pain 15:27:58 66 16 98 0 0 114/75(94) NSR 0 (11) 9(A) , No pain 15:32:10 72 14 98 0 0 118/74(96) NSR 0 (11) 9(A) , No pain 15:36:22 68 16 98 0 0 134/79(110) NSR 0 (11) 9(A) , No pain 15:40:34 72 17 97 0 0 135/97(123) NSR 0 (11) 9(A) , No pain 15:44:52 72 16 96 0 0 145/82(126) NSR 0 (11) 9(A) , No pain 15:49:02 75 17 96 0 0 128/90(125) NSR 0 (11) 9(A) , No pain 15:53:18 74 16 96 0 0 138/83(111) NSR 0 (11) 10(A) , No pain 15:57:28 66 18 96 0 0 143/91(108) NSR 0 (11) 10(A) , No pain Medications Time Medication Route Dose Verified Delivered Reason Notes Effectiveness by by 15:01:15 Oxygen NC 2 Sanket Frieda Per physician l/min Erasto Hurtado RN 15:01:23 Heparin Flush added 2 Sanket Sanket used for Bag to bags Erasto Santana MD procedure (1000units/500ml field NS) 15:01:30 Lidocaine 2% added 20ml Sanket Sanket used for to vial Erasto Santana MD procedure field 15:01:37 Benadryl I.V. 50 mg Sanket Frieda Per physician Erasto Hurtado RN 15:08:44 Versed I.V. 1 mg Sanket Frieda for sedation Erasto Hurtado RN 15:08:51 Fentanyl I.V. 50 Sanket Frieda for sedation mcg Erasto Hurtado RN 15:11:06 Versed I.V. 1 mg Sanket Frieda for sedation Erasto Hurtado RN 15:11:07 Fentanyl I.V. 50 Sanket Frieda for sedation mcg Erasto Hurtado RN 15:15:23 Fentanyl I.V. 50 Sanket Frieda for sedation mcg Erasto Hurtado RN 15:18:03 Versed I.V. 1 mg Sanket Frieda for sedation Erasto Hurtado RN 15:29:40 Heparin Bolus I.V. 7300 Sanket Frieda for dose units Erasto Hurtado RN anticoagulation verified with dr santana 15:38:06 Fentanyl I.V. 25 Sanket Frieda for sedation mcg Erasto Hurtado RN 15:38:10 Versed I.V. 0.5 Sanket Frieda for sedation mg Erasto Hurtado RN 15:41:00 Fentanyl I.V. 25 Sanket Frieda for sedation mcg Erasto Hurtado RN 15:41:03 Versed I.V. 0.5 Sanket Frieda for sedation mg Erasto Hurtado RN 15:54:43 Brilinta P.O. 180 Sanket Frieda for mg Erasto Hurtado RN antiplatelet therapy Procedure Log Time Note 14:42:12 Allison Scott RT(R) sent for patient. Start room use. 14:42:13 Time tracking: Regular hours 14:42:17 Plan of Care:Hemodynamics will remain stable., Cardiac rhythm will remain stable., Comfort level will be maintained., Respiratory function will remain adequate., Patient/ family verbilizes understanding of procedure., Procedure tolerated without complication., Recovers from procedure without complications.. 15:01:15 Oxygen 2 l/min NC was administered by Frieda Hurtado RN; Per physician; 15:01:23 Heparin Flush Bag (1000units/500ml NS) 2 bags added to field was administered by Sanket Santana MD; used for procedure; 15:01:30 Lidocaine 2% 20ml vial added to field was administered by Sanket Santana MD; used for procedure; 15:01:37 Benadryl 50 mg I.V. was administered by Frieda Hurtado RN; Per physician; 15:01:39 Vital chart was started 15:05:45 Patient received from ED to CCL 1 Alert and oriented. Tansferred to table in Supine position. 15:05:48 Warm blankets applied, and charlotte hugger turned on for patient comfort. 15:05:48 Correct patient and procedure confirmed by team. 15:05:49 Signed procedure consent form obtained from patient. 15:05:50 ECG and BP/O2 sat monitors applied to patient. 15:05:55 Baseline sample Acquired. 15:06:02 Rhythm: sinus rhythm 15:06:15 H&P Date Dictated: 05/07/2017 Within 30 days and on chart., ER History on chart.. 15:06:17 Pre-procedure instructions explained to patient. 15:06:17 Pre-op teaching completed and patient verbalized understanding. 15:06:19 Family in waiting room. 15:06:21 Patient NPO since Breakfast. 15:06:26 Patient allergic to No known allergies 15:06:28 Is the patient allergic to Iodine/contrast media? No. 15:06:31 Is patient on blood thinner?No 15:06:32 Patient diabetic? No. 15:06:35 Previous problem with sedation/anesthesia? No ? 15:06:50 Snore? Yes 15:06:52 Sleep apnea? No 15:06:54 Deviated septum? No 15:06:55 Opens mouth fully? Yes 15:06:56 Sticks out tongue? Yes 15:06:58 Airway obstruction? No ? 15:06:59 Dentures? No ? 15:07:03 Pre procedure: right posterior tibial pulse 2+ Normal; easily identifiable; not easily obliterated 15:07:05 Patient pain scale 0/10 ?. 15:07:10 IV patent on arrival in right hand, left hand with 0.9% NaCl at O. 15:07:42 Lab Result : Creatinine 0.8 mg/dl 15:07:42 Lab Result : BUN 15 mg/dl 15:07:42 Lab Result : Hemoglobin 14.5 g/dl 15:07:42 Lab Result : Hematocrit 41.3 % 15:07:45 Lab results completed and on chart. 15:07:48 Right groin area was prepped with chlora-prep and draped in sterile fashion 15:07:49 Alarms reviewed by R. N. 15:07:50 Sharps counted by scrub and verified by R.N. 15:07:52 Physician arrived 15:07:54 Use device set Femoral Dx 15:07:57 Tegaderm 4 x 4 opened to sterile field. 15:07:58 Acist Manifold opened to sterile field. 15:07:58 Acist Hand Control opened to sterile field. 15:07:59 Acist Syringe opened to sterile field. 15:08:00 Bag Decanter opened to sterile field. 15:08:00 Medline Cath Pack opened to sterile field. 15:08:01 Terumo 5Fr Chandler Sheath opened to sterile field. 15:08:02 Diagnostic Infinity 5Fr Multipack catheter opened to sterile field. 15:08:10 --------ALL STOP TIME OUT------ 15:08:10 Final Timeout: patient, procedure, and site verified with staff and physician. All members of the team are in agreement. 15:08:12 Right groin site verified by team. 15:08:14 Physical assessment completed. ASA score P 2 - A patient with mild systemic disease as per Sanket Santana MD. 15:08:17 Sedation plan: IV Moderate Sedation Versed, Fentanyl 15:08:44 Versed 1 mg I.V. was administered by Frieda Hurtado RN; for sedation; 15:08:51 Fentanyl 50 mcg I.V. was administered by Frieda Hurtado RN; for sedation; 15:11:06 Versed 1 mg I.V. was administered by Frieda Hurtado RN; for sedation; 15:11:07 Fentanyl 50 mcg I.V. was administered by Frieda Hurtado RN; for sedation; 15:13:57 Zero performed for pressure channel P1 15:14:01 Procedure started. 15:14:02 Full Disclosure recording started 15:14:04 Local anesthetic to right femoral artery with Lidocaine 2% by Sanket Santana MD.INITIAL ACCESS ONLY 15:14:10 A 5 Fr sheath was inserted into the Right Femoral artery 15:15:23 Fentanyl 50 mcg I.V. was administered by Frieda Hurtado RN; for sedation; 15:17:07 St Rito 260cm J .035 wire opened to sterile field. 15:17:31 A Cordis 5Fr JL 4.0 Catheter (MP) was advanced over the wire and used for Procedure. 15:18:03 Versed 1 mg I.V. was administered by Frieda Hurtado RN; for sedation; 15:19:51 LCA angiography performed. 15:20:56 Catheter exchanged over wire. 15:21:00 A Cordis 5Fr 3DRC Catheter (MP) was advanced over the wire and used for Procedure. 15:21:43 RCA angiography performed. 15:22:33 Catheter exchanged over wire. 15:22:38 A Cordis 5Fr Pigtail Catheter (MP) was advanced over the wire and used for Procedure. 15:23:39 LV hemodynamics recorded. 15:24:06 LV gram done using HARMAN 15:24:09 Injector settings: Ml/sec: 10, Volume: 20, 15:24:13 EF : 55 % 15:24:58 Catheter removed. 15:25:05 Terumo 6Fr Chandler Sheath opened to sterile field. 15:25:13 Merit BasixCompak Inflation Kit opened to sterile field. 15:25:24 High Pressure Extension Tubing (Erasto) opened to sterile field. 15:27:19 Sims [email or web address] Choice Floppy Straight 300cm 0.014 guid opened to sterile field. 15:27:22 Bautista BMW Johnson 2 J-tip 300cm 0.014 guide wir opened to sterile field. 15:28:24 Sheath upsized to a 6 Fr Short. 15:28:40 Cordis 6FR XBLAD 3.5 guide catheter opened to sterile field. 15:28:54 6 Fr XBLAD 3.5 guide catheter was inserted over the wire 15:29:40 Heparin Bolus 7300 units I.V. was administered by Frieda Hurtado RN; for anticoagulation; dose verified with dr satnana 15:30:12 BMW wire advanced. 15:34:59 Wire advanced across lesion. 15:37:06 CHOICE FLOPPY wire advanced down diag. 15:37:20 Wire advanced across lesion. 15:38:06 Fentanyl 25 mcg I.V. was administered by Frieda Hurtado RN; for sedation; 15:38:10 Versed 0.5 mg I.V. was administered by Frieda Hurtado RN; for sedation; 15:40:20 Inflation number: 1 A Sims Sci [place] 2.0 X 12 balloon was prepped and advanced across the 1st Diag, then inflated to 10 CLAYTON for 0:10 (min:sec). 15:41:00 Fentanyl 25 mcg I.V. was administered by Frieda Hurtado RN; for sedation; 15:41:03 Versed 0.5 mg I.V. was administered by Frieda Hurtado RN; for sedation; 15:42:03 Inflation number: 2 The Sims Sci [place] 2.0 X 12 balloon was reinflated across the 1st Diag, to 6 CLAYTON for 0:11 (min:sec). 15:43:45 Inflation number: 3 The Sims Sci [place] 2.0 X 12 balloon was reinflated across the 1st Diag, to 10 CLAYTON for 0:30 (min:sec). 15:44:59 Balloon removed over the wire. 15:49:36 Inflation Number: 1 A Medtronic Resolute 2.75 X 12 stent was prepped and advanced across the Prox LAD. The stent was deployed at 0 CLAYTON for 0:10 (min:sec). 15:50:36 Stent catheter was removed intact over wire. 15:50:38 Wire removed. 15:50:38 Wire removed. 15:50:38 Guide catheter removed. 15:50:49 Cordis 6Fr Exoseal opened to sterile field. 15:51:00 Sheath removed intact; hemostasis achieved with Exoseal to the Right Femoral artery. 15:51:02 Procedure ended.(Physican Out) 15:51:10 Fluoroscopy time 10.80 minutes. 15:51:27 Fluoroscopy dose: 799 mGy 15:51:27 Flurop Dose total: 799 15:51:31 Contrast amount:Isovue 300 128ml. 15:51:32 Sharps counted by scrub and verified by R.N. 15:51:36 Insertion/operative site no bleeding no hematoma. 15:51:38 Post-op/insertion site Right Femoral artery dressed using a 4 x 4 and Tegaderm. 15:51:41 Post right femoral artery:stable, soft, clean and dry 15:54:43 Brilinta 180 mg P.O. was administered by Frieda Hurtado RN; for antiplatelet therapy; 15:56:44 Post Procedure Pulses reassessed and unchanged 15:56:50 Post-procedure physical assessment completed. ASA score P 2 - A patient with mild systemic disease as per Sanket Santana MD. 15:56:57 Post procedure rhythm: unchanged. 15:56:58 Post procedure instruction explained to patient.Patient verbalizes understanding. 15:57:00 Patient needs reinforcement of post procedure teaching. 15:57:18 Procedure type changed to Cath procedure, Diagnostic procedure, LHC, LHC w/Coronaries, PCI procedure, Coronary Stent Initial, PTCA Additional, Miscellaneous Procedures, Moderate Sedation up to 45 minutes 15:58:22 Procedure and supply charges have been captured, reviewed, submitted and are correct. 15:58:24 Procedure Complication : No complications 15:58:26 Vital chart was stopped 15:58:27 See physician's report for complete and final results. 15:58:28 Report given to Pre/Post Procedure Room. 15:59:28 Patient transfered to Pre/Post Procedure Room with Stretcher. 15:59:30 Procedure ended. 15:59:30 Full Disclosure recording stopped 16:00:22 End room use (Document Last) Intervention Summary Intervention Notes Time ActionType Lesion and Equipment Action# Pressure Duration Attributes Used 15:40:20 Inflate 1st Diag Sims 1 10 00:10 balloon Sci [place] 2.0 X 12 balloon 15:42:03 Reinflate 1st Diag Sims 2 6 00:11 balloon Sci [place] 2.0 X 12 balloon 15:43:45 Reinflate 1st Diag Sims 3 10 00:30 balloon Sci [place] 2.0 X 12 balloon 15:49:36 Place stent Prox LAD Medtronic 1 0 00:10 Resolute 2.75 X 12 stent Device Usage Item Name Manufacture Quantity Catalog Number Hospital Part [facility] Lot# / Charge Number Stock Stock Serial# Code Tegaderm 4 1 [id number] [id number] 5 x 4 Acist Acist 1 42168 122660 889568 215280 5 Manifold Medical Systems Inc Acist Hand Acist 1 62839 818778 418249 708398 5 Control Medical Systems Inc Acist Acist 1 94441 641682 010071 824132 20 Syringe Medical Systems Inc Bag Microtek 1 2001S 516423 69680 473511 5 Nouvou, Inc.. Medline Cardinal 1 [id number] 705852 08752 828837 5 SurDoc Terumo 5Fr Terumo 1 [id number] 615641 242757 785015 40 Chandler Sheath Diagnostic Cardinal 1 [id number] 868510 45076 238119 30 Infinity Health 5Fr Multipack catheter [facility] Rito St Rito 1 927278 291317 125668 879879 30 260cm J .035 wire Cordis 5Fr Cardinal 1 308856 5 JL 4.0 Health Catheter (MP) Cordis 5Fr Cardinal 1 546188 5 3DRC Health Catheter (MP) Cordis 5Fr Cardinal 1 665760 5 Pigtail Health Catheter (MP) Terumo 6Fr Terumo 1 [id number] 090683 482751 048795 40 Chandler Sheath Merit Merit 1 [id number] 408912 762206 870155 15 BasixVisionGate Medical Inflation Kit High Merit 1 [id number] 427300 35735 507736 10 Pressure Medical Extension Tubing (Santana) Sims Sci Sims 1 [id number] 542016 742597 874485 5 Choice Scientific Floppy Straight 300cm 0.014 guid Bautista BMW Bautista 1 [id number] 989444 461536 098502 5 Johnson 2 Vascular J-tip 300cm 0.014 guide wir Cordis 6FR Cardinal 1 [id number] 905591 761493 410106 10 XBLAD 3.5 Health guide catheter Sims Sci Sims 1 [id number] 870672 538088 881376 1 [id number] [place] Scientific 2.0 X 12 balloon Medtronic Medtronic 1 [id number] 611056 923621 3 [id number] Resolute 2.75 X 12 stent Cordis 6Fr Cardinal 1 [id number] 771044 930048 660287 10 [facility] Signature Audit [place] Stage Time Signature Unsigned Intra-Procedure 05/07/2017 Chemo Carlos 4:02:03 PM RT(R) Signatures Monitor : Chemo Carlos RT Signature : Date : Time : [facility] [address] [place] [address]
--- NOTE | ~2017-05-07 | OP ---
PATIENT NAME: TONYA LYON MEDICAL RECORD: [id number] :55 LOCATION:D. D.2114 ADMISSION DATE:05/07/17 SURGEON: KASSIDY BOOTH M.D. DATE OF OPERATION: 05/07/2017 PROCEDURES PERFORMED: 1. Selective coronary angiography. 2. Left heart catheterization with ventriculogram. 3. PTCA and stent placed to the LAD. INDICATION: A 61-year-old with history of coronary artery disease presents with accelerating angina. EQUIPMENT USED: Diagnostic 5-Ghanaian JL4, Rajendra right, pigtail catheter. INTERVENTION: A 6-Ghanaian XB LAD guide, BMW guide wire, 2.0 x 12 mm [place] balloon, 2.75 x 12 mm Resolute stent. TECHNIQUE: A 5-Ghanaian sheath was inserted in retrograde fashion in the right common femoral artery. Next, selective coronary angiography was performed in standard views 5-Ghanaian JL4 and Rajendra right. Left heart catheterization was performed using pigtail catheter. CORONARY ANATOMY: 1. Left main: Left main trunk is moderate in caliber. It gives rise to the LAD and circumflex. It has no obstruction. 2. LAD: This is a moderate caliber vessel extending to the apex. The proximal vessel has been stented. The proximal aspect of the stent has a hazy 80% restenosis. The first diagonal branch has a 99% stenosis. 3. Circumflex: This vessel is moderate in caliber. The mid vessel has been stented. The stent is widely patent and without evidence of restenosis. 4. Right coronary artery: This vessel is moderate in caliber and dominant. The mid vessel has an irregular 50% stenosis. This appears unchanged from previous study. 5. Left ventricle: Left ventricle is normal in size and function. No wall motion abnormalities are noted. Estimated ejection fraction is 55%. DESCRIPTION OF INTERVENTION: A 6-Ghanaian sheath was inserted in retrograde fashion in the right common femoral artery. Next, 100 units per kilogram of heparin was infused. A 6-Ghanaian XB LAD guide was advanced and engaged in left main coronary artery. Next, a ChoICE floppy guidewire was placed in the first diagonal branch. A BMW guide wire was placed in the distal LAD. The first diagonal branch was predilated 2.0 x 12 mm [place] balloon at 10 atmospheres. Injection revealed a residual of 60% stenosis with no evidence of dissection. Next, a 2.75 x 12 mm Resolute stent was placed in the proximal LAD across re-stenotic area, but not across the diagonal branch. The stent was then deployed at 12 atmospheres. Injection shows stent to be widely patent with 0% residual stenosis. There is marked improvement in the distal flow. At this point, the wire and guides were removed. IMPRESSION: Successful percutaneous transluminal coronary angioplasty stent in the LAD with 0% residual stenosis. TRANSINT:[id number] Voice Confirmation ID: [id number] DOCUMENT ID: [id number] OPERATIVE REPORT [id number] TONYA LYON TIMOTHY E M.D. CC: [id number] DICTATION DATE: 05/07/17 1600 ICE CREAM MAKER: 05/07/17 [address] [facility] [address] [id number]
[2017-05-07 11:38] LABS: BASOPHILS 0.2 % (0-2); EOSINOPHILS 1.1 % (0-7); HEMATOCRIT 41.3 % (36.0-48.0); HEMOGLOBIN 14.5 g/dL (12-16); IMMATURE GRANULOCYTES 0.1 % (0-5); LYMPHOCYTES 25.9 % (15-50); MCHC 35.1 g/dL (31.0-37.0); MCV 88.4 fL (80.0-100.0); MEAN PLATELET VOLUME 10.1 fL (7.4-10.4); MONOCYTES 5.4 % (2-11); NEUTROPHILS 67.3 % (40-80); PLATELET COUNT 232 10x3/uL (130-400); RBC 4.67 10x6/uL (4.00-5.40); RDW 12.6 % (11.5-14.5); WBC 10.9 10x3/uL (4.8-10.8)
[2017-05-07 12:08] LABS: ALBUMIN 3.8 g/dL (3.4-5.0); ALKALINE PHOSPHATASE 63 U/L (46-116); ALT (SGPT) 21 U/L (10-68); BILIRUBIN - TOTAL 0.65 mg/dL (0.2-1.3); CALC OSMOLALITY 273 mosm/kg (275-300); CARBON DIOXIDE 27.3 mmol/L (21.0-32.0); CHLORIDE - SERUM 101 mmol/L (98-107); CREATININE - SERUM 0.8 mg/dL (0.6-1.3); GLUCOSE 122 mg/dL (74-106); POTASSIUM - SERUM 4.4 mmol/L (3.5-5.1); PROTEIN - SERUM 7.2 g/dL (6.4-8.2); SODIUM 136 mmol/L (136-145); UREA NITROGEN 15 mg/dL (7-18); eGFR NON AFRICAN AMERICAN 77 mL/min (90-120)
[2017-05-07 12:24] LABS: CKMB 0.6 U/L (0.0-3.6); CREATINE KINASE 42 UL (21-215)
[2017-05-07 12:33] LABS: TROPONIN-I 0.171 ng/mL (0.000-0.060)
[2017-05-07 15:36] LABS: CALC OSMOLALITY 279 mosm/kg (275-300); CALCIUM 9.3 mg/dL (8.5-10.1); CHLORIDE - SERUM 102 mmol/L (98-107); CREATININE - SERUM 0.8 mg/dL (0.6-1.3); GLUCOSE 122 mg/dL (74-106); POTASSIUM - SERUM 4.5 mmol/L (3.5-5.1); SODIUM 139 mmol/L (136-145); UREA NITROGEN 16 mg/dL (7-18); eGFR NON AFRICAN AMERICAN 77 mL/min (90-120)
--- NOTE | 2017-05-07 16:30 | NUR ---
1620 RECEIVED PT FROM PARTS CONSULTANT. PT VERY SLEEPY, AWAKENS EASILY TO VERBAL STIMULI. PT DENIES ANY C/O CEST DISCOMFORT NAUSEA OR CATH SITE PAIN. REQUESTED WATER AND THIS SERVED. DRESSING TO RIGHT GROIN IS CDI, AREA IS SOFT AND NON-TENDER. PEDAL PULSES PALPABLE. NO FAMILY AT BEDSIDE, CALL LIGHT IS IN REACH.
--- NOTE | 2017-05-07 16:34 | NUR ---
5993 DRESSING TO RIGHT GROIN IS CDI, NO BLEEDING OR HEMATOMA AT SITE. PEDAL PULSES PALPABLE. CAP REFILL IS BRISK. PT DENIES NEEDS AT THIS TIME. CALL LIGHT IN REACH.
--- NOTE | 2017-05-07 17:20 | NUR ---
1720 SANDWICH TRAY SERVED, PT RISHABH WITH NO C/O NAUSEA. DRESSING TO RIGHT GROIN IS CDI, NO BLEEDING OR HEMATOMA NOTED. AREA IS SOFT AND NONTENDER. PT DENIES ANY C/O CHEST PAIN. VSS. NO FAMILY AT BEDSIDE. WILL CONTINUE TO MONITOR.
--- NOTE | 2017-05-07 18:18 | NUR ---
1800 PT DENIES ANY C/O. DRESSING TO RIGHT GROIN IS CDI, NO BLEEDING OR HEMATOMA NOTED. PEDAL PULSES PALPABLE. CAP REFILL IS BRISK. NO FAMILY AT BEDSIDE, CALL LIGHT IN REACH.
--- NOTE | 2017-05-07 18:20 | NUR ---
1820 PT DENIES NEEDS AT THIS TIME, DRESSING RIGHT GROIN IS CDI, NO BLEEDING OR HEMATOMA NOTED. CALL LIGHT IN REACH, WILL CONTINUE TO MONITOR.
--- NOTE | 2017-05-07 19:00 | NUR ---
INITIAL ROUNDS MADE. PT LYING IN BED FLAT, RIGHT GROIN STABLE. VSS. FAMILY AT BEDSIDE. DISCUSSED PLAN OF CARE. DENIES NEEDS. CALL LIGHT IN REACH. WILL CONT TO MONITOR.
[2017-05-07 20:50] LABS: CKMB 1.3 U/L (0.0-3.6); CREATINE KINASE 66 UL (21-215)
[2017-05-07 20:55] VITALS: Ht 163.8 cm; Wt 72.7 kg
[2017-05-07 21:03] LABS: TROPONIN-I 0.214 ng/mL (0.000-0.060)
[2017-05-07 21:30] VITALS: BP 118/69
[2017-05-08 02:21] VITALS: BP 114/61
[2017-05-08 06:34] VITALS: BP 120/81
[2017-05-08 08:14] VITALS: BP 126/75
[2017-05-08] MEDS ORDERED: BRILINTA90 MG PO (08:25)
[2017-05-08] MEDS ORDERED: NITROSTAT0.4 MG SL (08:26)
--- NOTE | 2017-05-08 09:46 | NUR ---
IV AND TELEMETRY DCD. DC PLANS GIVEN. UNDERSTANDING VOICED. ESCORTED TO CAR BY W/C. [facility] WITH .
== END 2017-05-08 10:03 | disposition home or self-care (01) ==
LOC: D.ER 11:06 → OBSVTIME 12:57 → D.M2 12:57
PROVIDERS: Emergency Medicine; ADMIT Internal Medicine Cardiovascular Disease
DX: I25.110 Atherosclerotic heart disease of native coronary artery with unstable angina pectoris (principal); Z95.5 Presence of coronary angioplasty implant and graft; I10 Essential (primary) hypertension; I47.1 Supraventricular tachycardia

== ENCOUNTER 2017-08-12 13:35 | Emergency (ER) | payer OTHER ==
[2017-05-07 20:55] VITALS: BMI 27.1
[~2017-08-12 13:35] MED LIST changes: +NITROSTAT0.4 MG SL
[2017-08-12 15:37] LABS: BASOPHILS 0.4 % (0-2); EOSINOPHILS 1.9 % (0-7); HEMATOCRIT 39.8 % (36.0-48.0); HEMOGLOBIN 14.2 g/dL (12-16); IMMATURE GRANULOCYTES 0.2 % (0-5); LYMPHOCYTES 35.9 % (15-50); MCH 31.4 pg (26.0-34.0); MCHC 35.7 g/dL (31.0-37.0); MCV 88.1 fL (80.0-100.0); MEAN PLATELET VOLUME 10.1 fL (7.4-10.4); MONOCYTES 8.3 % (2-11); NEUTROPHILS 53.3 % (40-80); PLATELET COUNT 215 10x3/uL (130-400); RBC 4.52 10x6/uL (4.00-5.40); WBC 8.3 10x3/uL (4.8-10.8)
[2017-08-12 15:42] LABS: APPEARANCE CLEAR (CLEAR); BILIRUBIN NEGATIVE (NEGATIVE); COLOR STRAW (YELLOW); GLUCOSE NEGATIVE (NEGATIVE); KETONE NEGATIVE (NEGATIVE); LEUKOCYTE ESTERASE NEGATIVE (NEGATIVE); NITRITE NEGATIVE (NEGATIVE); PH 7.5 (5.0-6.0); PROTEIN NEGATIVE (NEGATIVE); SPECIFIC GRAVITY 1.005 (1.005-1.020); UROBILINOGEN NORMAL (NORMAL)
[2017-08-12 16:20] LABS: CALC OSMOLALITY 277 mosm/kg (275-300); CALCIUM 9.1 mg/dL (8.5-10.1); CARBON DIOXIDE 29.9 mmol/L (21.0-32.0); CHLORIDE - SERUM 105 mmol/L (98-107); CREATINE KINASE 37 UL (21-215); CREATININE - SERUM 0.7 mg/dL (0.6-1.3); GLUCOSE 89 mg/dL (74-106); POTASSIUM - SERUM 3.7 mmol/L (3.5-5.1); SODIUM 141 mmol/L (136-145); TROPONIN-I < 0.017 ng/mL (0.000-0.060); UREA NITROGEN 7 mg/dL (7-18); eGFR NON AFRICAN AMERICAN 90 mL/min (90-120)
== END 2017-08-12 16:58 | disposition home or self-care (01) ==
LOC: D.ER 13:35
PROVIDERS: Nurse Practitioner Acute Care
DX: I95.9 Hypotension, unspecified (principal); I49.3 Ventricular premature depolarization

== ENCOUNTER 2019-03-26 09:11 | Emergency (ER) | payer OTHER ==
[~2019-03-26] VITALS: Ht 163.8 cm; Wt 72.7 kg
[2019-03-26 09:15] VITALS: Ht 163.8 cm; Wt 72.7 kg
[2019-03-26] MEDS ORDERED: CO Q-1050 MG PO (09:18)
[2019-03-26] MEDS ORDERED: SYMBASTATIN (09:19)
[2019-03-26 09:58] LABS: BASOPHILS 0.2 % (0-2); HEMATOCRIT 39.8 % (36.0-48.0); HEMOGLOBIN 14.2 g/dL (12-16); IMMATURE GRANULOCYTES 0.4 % (0-5); LYMPHOCYTES 29.2 % (15-50); MCH 30.9 pg (26.0-34.0); MCHC 35.7 g/dL (31.0-37.0); MCV 86.5 fL (80.0-100.0); MEAN PLATELET VOLUME 9.6 fL (7.4-10.4); MONOCYTES 5.6 % (2-11); NEUTROPHILS 63.6 % (40-80); PLATELET COUNT 237 10x3/uL (130-400); RDW 12.6 % (11.5-14.5); WBC 8.4 10x3/uL (4.8-10.8)
[2019-03-26 10:19] LABS: ALBUMIN 4.1 g/dL (3.4-5.0); ALKALINE PHOSPHATASE 80 U/L (46-116); ALT (SGPT) 26 U/L (10-68); APTT 25.7 SECONDS (22.8-39.4); BILIRUBIN - TOTAL 0.31 mg/dL (0.2-1.3); CALC OSMOLALITY 280 mosm/kg (275-300); CALCIUM 9.4 mg/dL (8.5-10.1); CHLORIDE - SERUM 105 mmol/L (98-107); CREATININE - SERUM 0.8 mg/dL (0.6-1.3); GLUCOSE 115 mg/dL (74-106); INR 0.91 (0.85-1.17); POTASSIUM - SERUM 4.3 mmol/L (3.5-5.1); PROTEIN - SERUM 7.6 g/dL (6.4-8.2); PROTIME 11.8 SECONDS (11.6-15.0); SODIUM 140 mmol/L (136-145); UREA NITROGEN 15 mg/dL (7-18); eGFR NON AFRICAN AMERICAN 77 mL/min (90-120)
[2019-03-26 10:31] LABS: CKMB 0.4 U/L (0.0-3.6); CREATINE KINASE 38 UL (21-215); TROPONIN-I < 0.017 ng/mL (0.000-0.060)
[2019-03-26 12:36] LABS: CKMB 0.2 U/L (0.0-3.6); CREATINE KINASE 35 UL (21-215)
[2019-03-26 12:37] LABS: TROPONIN-I < 0.017 ng/mL (0.000-0.060)
[2019-03-26] MEDS ORDERED: OMEPRAZOLE40 MG PO (13:53)
[2019-03-26] MEDS ORDERED: VOLTAREN75 MG PO (13:53)
[2019-03-26 14:43] VITALS: BP 132/75
== END 2019-03-26 14:02 | disposition home or self-care (01) ==
LOC: D.ER 09:11
PROVIDERS: Family Medicine
DX: M79.601 Pain in right arm (principal); K21.9 Gastro-esophageal reflux disease without esophagitis

== ENCOUNTER → 2020-07-15 11:35 | Outpatient (CLI) | payer OTHER ==
[2019-03-26 09:15] VITALS: BMI 27.1
[~2020-07-15 11:35] MED LIST changes: +CO Q-1050 MG PO; +OMEPRAZOLE40 MG PO; +SYMBASTATIN; +VOLTAREN75 MG PO
== END | disposition home or self-care (01) ==
LOC: D.HCCARDIO 07-09 11:30
PROVIDERS: ATTEND Internal Medicine Cardiovascular Disease
DX: I25.10 Atherosclerotic heart disease of native coronary artery without angina pectoris (principal)